=== PATIENT | female | born 1990 | race Caucasian/White ===

== ENCOUNTER 2021-03-11 10:07 | Emergency (ER) | payer OTHER ==
[2021-03-11 10:46] LABS: BASOPHILS # (AUTO) 0.1 10^3/uL (0.0-0.1); BASOPHILS % (AUTO) 1.3 %; EOSINOPHILS # (AUTO) 0.1 10^3/uL (0.0-0.7); EOSINOPHILS % (AUTO) 1.5 %; HCT - HEMATOCRIT 40.4 % (37.0-47.0); HGB - HEMOGLOBIN 13.5 g/dL (12.0-16.0); LYMPHOCYTES % (AUTO) 28.5 %; MEAN CORPUSCULAR HEMOGLOBIN 30.6 pg (27.0-31.0); MEAN CORPUSCULAR HGB CONC 33.4 g/dL (32.0-36.0); MEAN CORPUSCULAR VOLUME 91.6 fL (81.0-99.0); MEAN PLATELET VOLUME 9.1 fL (7.9-10.8); MONOCYTES # (AUTO) 0.6 10^3/uL (0.0-1.0); MONOCYTES % (AUTO) 7.7 %; NEUTROPHILS # (AUTO) 4.3 10^3/uL (1.5-6.6); NEUTROPHILS % (AUTO) 60.7 %; PLT - PLATELET COUNT 266 10^3/uL (130-450); RED BLOOD COUNT 4.41 10^6/uL (4.20-5.40); RED CELL DISTRIBUTION WIDTH 12.5 % (12.0-15.0); WHITE BLOOD COUNT 7.2 x10^3/uL (4.8-10.8)
[2021-03-11 11:03] LABS: ALBUMIN 3.9 g/dL (3.2-5.5); ALBUMIN/GLOBULIN RATIO 1.2 (1.0-2.2); BILIRUBIN,TOTAL 0.6 mg/dL (0.2-1.0); CALCIUM 8.7 mg/dL (8.5-10.3); CREATININE 0.7 mg/dL (0.4-1.0); POTASSIUM 3.7 mmol/L (3.5-5.0); TOTAL PROTEIN 7.2 g/dL (6.7-8.2)
[2021-03-11 12:18] LABS: BILIRUBIN,URINE NEGATIVE (NEGATIVE); GLUCOSE, URINE (UA) NEGATIVE (NEGATIVE); KETONES,URINE (UA) NEGATIVE (NEGATIVE); LEUKOCYTE ESTERASE, URINE NEGATIVE (NEGATIVE); NITRITE,URINE NEGATIVE (NEGATIVE); OCCULT BLOOD,URINE LARGE (NEGATIVE); PH,URINE 8.5 PH (5.0-7.5); PROTEIN,URINE TRACE mg/dL (NEGATIVE); UROBILINOGEN,URINE 0.2 (NORMAL) E.U./dL (NORMAL)
[2021-03-11 12:19] LABS: CLARITY,URINE BLOODY (CLEAR)
[2021-03-11 12:47] LABS: BACTERIA,URINE Few /HPF (None Seen); RBC,URINE TNTC /HPF (0-5); SQUAMOUS EPITHELIAL CELL,UR MOD Squamous (<= Few); WBC,URINE 0-3 /HPF (0-5)
[2021-03-11 13:20] VITALS: BP 133/82
--- NOTE | 2021-03-11 13:34 | ED Physician Documentation ---
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 She had a follow-up test done 1 week ago also showing and she has now developed vaginal bleeding and cramping. She has not passed tissue that she is aware of. She has had miscarriage previously and this feels similar. She has not had an ultrasound with this . She has a referral to [facility]. Review of Systems Constitutional: denies: Fever Nose: denies: Congestion Throat: denies: Sore throat Respiratory: denies: Cough GI: reports: Abdominal Pain, Nausea. 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 : None HEENT: None Psych: Anxiety Musculoskeletal: None Derm: None - Past Surgical History Past Surgical History: Yes /SODA ROOM OPERATOR: section - Present Medications Home Medications: Ambulatory Orders Medication Instructions Recorded Confirmed Aspirin [[place] Aspirin] 81 mg PO DAILY 03/11/21 03/11/21 Labetalol [Trandate] 100 mg PO DAILY 03/11/21 03/11/21 - Allergies Allergies/Adverse Reactions: Allergies Allergy/AdvReac Type Severity Reaction Status Date / Time No Known Drug Allergies Allergy Verified 03/11/21 10:18 - Social History Does the pt smoke?: No Smoking Status: Never smoker Does the pt drink ETOH?: No Does the pt have substance abuse?: No - Immunizations Immunizations are current?: Yes PD ED PE NORMAL - Vitals Vital signs reviewed: Yes (hypertensive ) - General General: Alert and oriented X 3, No acute distress, Well developed/nourished - HEENT HEENT: Atraumatic, PERRL, EOMI - Neck Neck: Supple, no meningeal sign, No bony TTP - Cardiac Cardiac: RRR, No murmur - Respiratory Respiratory: No respiratory distress, Clear bilaterally - Abdomen Abdomen: Normal bowel sounds, Soft, Non distended, No organomegaly, Other (mild suprapubic tenderness) - Back Back: No CVA TTP, No spinal TTP - Derm Derm: Normal color, Warm and dry, No rash - Extremities Extremities: No deformity, No edema - Neuro Neuro: Alert and oriented X 3, 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, No motor deficit, No sensory deficit, Normal speech Eye Opening: Spontaneous Motor: Obeys Commands Verbal: Oriented GCS Score: 15 - Psych Psych: Normal mood, Normal affect Results - Vitals Vitals: Vital Signs - 24 hr 03/11/21 03/11/21 03/11/21 10:15 11:56 13:19 Temperature 36.0 C L 36.3 C L 36.4 C L Heart Rate 82 93 78 Respiratory 16 14 14 Rate Blood Pressure 143/94 H 140/90 H 133/82 H O2 Saturation 100 100 100 Oxygen O2 Source Room air - Labs Labs: Laboratory Tests 03/11/21 03/11/21 03/11/21 10:38 10:38 10:38 WBC 7.2 RBC 4.41 Hgb 13.5 Hct 40.4 MCV 91.6 MCH 30.6 MCHC 33.4 RDW 12.5 Plt Count 266 MPV 9.1 Neut # (Auto) 4.3 Lymph # (Auto) 2.0 [place] # (Auto) 0.6 Eos # (Auto) 0.1 Baso # (Auto) 0.1 Absolute Nucleated RBC 0.00 Nucleated RBC % 0.0 Sodium 136 Potassium 3.7 Chloride 103 Carbon Dioxide 24 Anion Gap 9.0 BUN 10 Creatinine 0.7 Estimated GFR (MDRD) 100 Glucose 103 H Calcium 8.7 Total Bilirubin 0.6 AST 15 ALT 14 Alkaline Phosphatase 56 Total Protein 7.2 Albumin 3.9 Globulin 3.3 Albumin/Globulin Ratio 1.2 Lipase 31 HCG, Quant Urine Color Urine Clarity Urine pH Ur Specific [place] Urine Protein Urine Glucose (UA) Urine Ketones Urine Occult Blood Urine Nitrite Urine Bilirubin Urine Urobilinogen Ur Leukocyte Esterase Urine RBC Urine WBC Ur Squamous Epith Cells Urine Bacteria Ur Microscopic Review Urine Culture Comments Blood Type A NEGATIVE 03/11/21 03/11/21 10:38 11:50 WBC RBC Hgb Hct MCV MCH MCHC RDW Plt Count MPV Neut # (Auto) Lymph # (Auto) Eaton # (Auto) Eos # (Auto) Baso # (Auto) Absolute Nucleated RBC Nucleated RBC % Sodium Potassium Chloride Carbon Dioxide Anion Gap BUN Creatinine Estimated GFR (MDRD) Glucose Calcium Total Bilirubin AST ALT Alkaline Phosphatase Total Protein Albumin Globulin Albumin/Globulin Ratio Lipase HCG, Quant 221.78 Urine Color RED/BLOODY Urine Clarity BLOODY Urine pH 8.5 H Ur Specific [place] 1.015 Urine Protein TRACE Urine Glucose (UA) NEGATIVE Urine Ketones NEGATIVE Urine Occult Blood LARGE H Urine Nitrite NEGATIVE Urine Bilirubin NEGATIVE Urine Urobilinogen 0.2 (NORMAL) Ur Leukocyte Esterase NEGATIVE Urine RBC TNTC H Urine WBC 0-3 Ur Squamous Epith Cells MOD Squamous H Urine Bacteria Few Ur Microscopic Review INDICATED Urine Culture Comments NOT INDICATED Blood Type - Rads (name of study) ob ultrasound Radiology: Prelim report reviewed PD MEDICAL DECISION MAKING - ED course Complexity details: reviewed results, re-evaluated patient, considered differential, d/w patient ED course: 30-year-old female with her fifth appears to be having miscarriage in early . She has tested positive for 2 weeks ago has a quantitative hCG of 221 which seems very low for that length of time. I suspect she has already miscarried and we are unable to see any portion of a fetus or sac in the uterus. I have asked the patient to follow-up with her primary for a repeat hCG later this week to confirm that it is still going down. She has had 2 prior miscarriages.The patient is blood type A- and her is also A-. Departure - Departure Disposition: 01 Home, Self Care Clinical Impression: Miscarriage Condition: Stable Instructions: ED Miscarriage Incom Follow-Up: GEORGE CLANCY ARNP [Primary Care Provider] - Comments: Rosalind, today your quantitative hCG was 221.78. This is a low number and we were not able to see any fetus on exam today. The suspicion is that there is a completed miscarriage. The recommendation is to have your hCG rechecked sometime this week to make certain that it is falling. Discharge Date/Time: 03/11/21 14:04
--- NOTE | 2021-03-11 15:44 | Ultrasound Report ---
PROCEDURE: OB First Trimester INDICATIONS: early spotting OUTSIDE/PRIOR DATING DATA: Last menstrual period (LMP): 01/31/2021. LMP-based estimated date of delivery (KASSY): 11/07/2021. First dating scan (date and location): 03/11/2021. TECHNIQUE: Real-time scanning was performed of the fetus and maternal pelvic organs, with image documentation. COMPARISON: None FINDINGS: Uterus is within normal limits. No evidence of intrauterine is seen. Maternal organs: 17 mm lucent focus within the left ovary is present.. IMPRESSION: 1. No evidence of intrauterine gestation. Ectopic cannot be excluded. Continued clinical an d serological follow-up is recommended for further assessment. Reviewed by: Makayla Rosas MD on 03/11/2021 3:42 PM PST Approved by: Makayla Rosas MD on 03/11/2021 3:42 PM [facility] Station ID: [id number]
--- NOTE | 2021-03-11 15:45 | Ultrasound Report ---
PROCEDURE: OB Transvaginal INDICATIONS: early spotting TECHNIQUE: Endovaginal imaging is performed. COMPARISON: None. FINDINGS: Please see accompanying obstetric ultrasound first trimester report. IMPRESSION: Endovaginal imaging obtained during obstetric ultrasound examination. Reviewed by: Makayla Rosas MD on 03/11/2021 3:43 PM PST Approved by: Makayla Rosas MD on 03/11/2021 3:43 PM PST Station ID: [id number]
== END 2021-03-11 14:04 | disposition home or self-care (01) ==
LOC: ED 10:07
DX: O03.9 Complete or unspecified spontaneous abortion without complication (principal); Z3A.00 Weeks of gestation of pregnancy not specified
CPT/HCPCS: 36415; 80053; 81001; 81003; 83690; 84702; 85025; 86900; 86901; 87086; 99283; 99284

== ENCOUNTER 2021-03-17 08:39 | Outpatient (CLI) | payer OTHER ==
[2021-03-17] MEDS ORDERED: GADOBUTROL 10 MMOL/10 ML VIAL ONE (08:52)
--- NOTE | 2021-03-17 11:05 | MRI Report ---
PROCEDURE: Brain W/WO INDICATIONS: SCOTOMA INVOLVING CENTRAL AREA OF RIGHT EYE CONTRAST: IV CONTRAST: Gadavist ml: 10 TECHNIQUE: Noncontrast axial T1 spin echo, axial T2 fast spin echo, sagittal and axial FLAIR, coronal T2 fast sp in echo, axial gradient echo, axial diffusion and ADC through the brain. After the administration of contrast, axial and coronal T1 spin echo with fat saturation through the brain. COMPARISON: None. FINDINGS: Image quality: Excellent. CSF spaces: Basal cisterns are patent. No extra-axial fluid collections. Ventricles are normal in size and shape. Brain: No midline shift. No intracranial bleeds or masses. No abnormal intracranial enhancement. There is cerebral volume loss for age. There is periventricular white matter chronic small vessel is chemic change. The brainstem appears normal. Diffusion-weighted images demonstrate no acute ischemi c insults. No chronic ischemic insults. Normal intravascular flow voids are present. Skull and face: Calvarial marrow is normal in signal. In this patient with this given history, scrutiny is given to the orbits. To the limits of this stand jennifer protocol study, no significant abnormality of the orbits can be seen. No masses or mass effect ca n be seen. No abnormal fluid can be seen along the optic nerves. The globes demonstrate a normal, sym metric appearance. No abnormal enhancement is seen. The extraocular muscles demonstrate a normal, sym metric appearance. Sinuses: Sinuses and mastoids appear clear. IMPRESSION: Unremarkable study, without an imaging explanation found for the patient's presenting sy mptoms. To the limits of this standard protocol study, no significant orbital abnormality is seen. Reviewed by: Scotty Geiger MD on 03/17/2021 10:04 AM [facility] Approved by: Scotty Geiger MD on 03/17/2021 10:04 AM [facility] Station ID: [id number]
[2021-03-18] MEDS ORDERED: GADOBUTROL 10 MMOL/10 ML VIAL IVP ONE (07:48)
== END 2021-03-17 08:40 | disposition home or self-care (01) ==
LOC: DI 08:39
PROVIDERS: ATTEND Nurse Practitioner Family
DX: H53.411 Scotoma involving central area, right eye (principal); I10 Essential (primary) hypertension
CPT/HCPCS: 70553; A9585

== ENCOUNTER 2021-07-03 15:39 | Emergency (ER) | payer OTHER ==
[2021-07-03 15:56] VITALS: BP 151/90
--- NOTE | 2021-07-03 16:26 | ED Physician Documentation ---
History of Present Illness - Stated complaint Stated Complaint: LT EYE VISION ISSUE - Chief complaint Chief Complaint: Heent - History obtained from History obtained from: Patient - History of Present Illness Timing: Today Pain level max: 0 Pain level now: 0 - Additonal information Additional information: 31-year-old female presents to the emergency department stating that she feels like there are strobe lights in the lateral portion of the vision in her left eye. This started a few hours prior to arrival. She contacted her eye doctor who referred her here as "they were getting ready to close". She has no headache. Has not had similar symptoms previously. No nausea or vomiting. No loss of vision. No blurred vision. She states that her vision still appears normal except for the strobe effect. No headache. No history of migraines. Nothing makes it better or worse. She states that she did have "swelling" of the optic nerve in the right eye a few months ago. Had a negative brain MRI at that time. She states she has had blood work as well that was reportedly normal. 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 - Present Medications Home Medications: Ambulatory Orders Medication Instructions Recorded Confirmed Labetalol [Trandate] 100 mg PO DAILY 03/11/21 07/03/21 - Allergies Allergies/Adverse Reactions: Allergies Allergy/AdvReac Type Severity Reaction Status Date / Time No Known Drug Allergies Allergy Verified 07/03/21 15:53 - Social History Does the pt smoke?: No Smoking Status: Never smoker Does the pt drink ETOH?: No Does the pt have substance abuse?: No - Immunizations Immunizations are current?: Yes PD ED PE NORMAL - Vitals Vital signs reviewed: Yes - General General: Alert and oriented X 3, No acute distress - HEENT HEENT: PERRL, EOMI, Moist mucous membranes, Other (Normal funduscopic exam bilaterally. Normal ultrasound of the left eye. No evidence of retinal detachment. Optic nerve diameter on ultrasound is 4.6 mm.) - Neck Neck: Supple, no meningeal sign - Respiratory Respiratory: No respiratory distress - Derm Derm: Warm and dry - Neuro Neuro: Alert and oriented X 3 - Psych Psych: Normal mood, Normal affect Results - Vitals Vitals: Vital Signs - 24 hr 07/03/21 15:53 Temperature 37.0 C Heart Rate 80 Respiratory 18 Rate Blood Pressure 151/90 H O2 Saturation 99 Oxygen O2 Source Room air PD MEDICAL DECISION MAKING - ED course Complexity details: reviewed old records (normal brain MRI with and without in March 2021), considered differential, d/w patient, d/w independent beauty consultant ED course: No visual field defects on confrontation. Visual acuity is normal in both eyes. No acute findings on physical exam, funduscopic exam or ultrasound exam. Discussed the case with her retinal specialist, Dr. Andres, he will see her in the office tomorrow. Patient counseled regarding signs and symptoms for which I believe and urgent re-evaluation would be necessary. Patient with good understanding of and agreement to plan and is comfortable going home at this time This document was made in part using voice recognition software. While efforts are made to proofread this document, sound alike and grammatical errors may occur. 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 Andres today. He would like evaluated in the office tomorrow. Please call the main office number [phone] and tell them that I spoke with Dr. Andres today and he would like you seen tomorrow morning. They will schedule an appointment for you. Return if you worsen. Your exam appears normal today. Discharge Date/Time: 07/03/21 16:42
== END 2021-07-03 16:42 | disposition home or self-care (01) ==
LOC: ED 15:39
DX: H53.452 Other localized visual field defect, left eye (principal)
CPT/HCPCS: 99281; 99282

== ENCOUNTER 2022-11-07 08:00 | Outpatient (CLI) | payer OTHER | END 2022-11-07 23:59 | disposition home or self-care (01) | LOC: LAB.N 08:00 | PROVIDERS: ATTEND Registered Nurse | DX: R30.0 Dysuria (principal) | CPT/HCPCS: 87077; 87086; 87181 ==